=== PATIENT | male | born 1990 ===

== ENCOUNTER 2018-07-15 12:42 | Emergency (ER) | payer OTHER ==
[2018-07-15] MEDS ORDERED: ACETAMINOPHEN 325 MG TAB ONE (14:01)
[2018-07-15 14:28] LABS: RAPID GROUP A STREP NEGATIVE (NEGATIVE)
== END 2018-07-15 14:49 | disposition home or self-care (01) ==
LOC: EDH 12:42
DX: B34.9 Viral infection, unspecified (principal); H10.9 Unspecified conjunctivitis; J45.909 Unspecified asthma, uncomplicated
CPT/HCPCS: 87804; 87880